=== PATIENT | male | born 1940 | race Caucasian/White ===

== ENCOUNTER 2019-01-05 06:27 | Day surgery (SDC) | payer OTHER ==
[2019-01-05] MEDS ORDERED: NA CHLORIDE 0.9% 1,000 ML ONE (06:40)
[2019-01-05] MEDS ORDERED: CEFAZOLIN/SWI 1gm 0 GM/0 ML SYR ONE (06:40)
[2019-01-05 07:08] VITALS: BP 112/71; TEMP 97.5; O2SAT 100
[2019-01-05] MEDS ORDERED: PROPOFOL 200 MG/20 ML VIAL IV ONE ×2 (07:08→08:10)
[2019-01-05] MEDS ORDERED: FENTANYL CITR 100 MCG/2 ML ONE ×2 (07:09→08:10)
[2019-01-05] MEDS ORDERED: LIDOCAINE 2% MPF 5 ML VIAL ONE ×2 (07:09→08:10)
--- NOTE | 2019-01-05 08:11 | P.HP ---
Date of Service: 01/05/19 PC: This 78-year-old male presents for wide excision and split-thickness skin graft of a lesion on his left mulligan. HPC: Patient has had this nonhealing infected wound for the last 3 months. Wound has not close. Has failed outpatient therapy. PMH: CVD PSHx: Negative SOC: No known allergies SYS REVIEW: No cough, wheeze, shortness of breath. No chest pain or palpitations. No urinary complaints or change in bowel habit. O/E awake alert stable HEENT: Within normal limits Chest: Chest movement equal bilaterally ABD: Soft LOCO: The area of the left mulligan and showed remarkable improvement since he was last seen in the office. There is now a 7 mm circular lesion on the anterior mulligan. The base of this shows good clean tissue. The surrounding area is clean. DATA: Intact IMPRESSION: Healing wound PLAN: I had intended on taking to the operating room for wide excision and split-thickness skin graft as this wound had not close over the course of 4 months. Since he was last seen in the office, when he was instructed on appropriate wound care, the wound has almost closed. She does not require surgical intervention at this time. We will see what it looks like wound is fully healed and we may have to reschedule but for now the surgery is canceled. I have discussed this with him and his . We clarified issues about scab removal etc. He will see me next week in my office.
== END 2019-01-05 08:15 | disposition home or self-care (01) ==
LOC: OR 06:27
PROVIDERS: ATTEND Surgery
DX: S81.802A Unspecified open wound, left lower leg, initial encounter (principal); Z53.8 Procedure and treatment not carried out for other reasons
CPT/HCPCS: 36415; 82962; J7030; J0690; J2704; J3010